=== PATIENT | female | born 1955 | race African-American/Black ===

== ENCOUNTER 2018-01-14 19:31 | Emergency (ER) | payer OTHER ==
[~2018-01-14] VITALS: Ht 167.6 cm; Wt 72.6 kg
[~2018-01-14 19:31] MED LIST: ALEVE220 M1 PO; APAP/CODEINE ELI5 M1 OR; APAP500; APAP500 PO; APHEN325 MG PO; ARICEPT 5 MG TAB5 MG PO; ASPIRIN EC81 M1 PO; BACTRIM DS TAB1 EACH PO; BAYER CHEWABLE81 MG PO; BENADRYL25 MG; BENADRYL25 MG PO; CARBAMAZEPINE200 M2 PO; CARBAMAZEPINE200 M6 PO; CEPACOL SORE T1 EAC7; CIPROFLOXACIN500 M1 PO; DOXYCYCLINE 10100 MG PO; FLONASE 0.05%50 MCG INH; FLONASE 0.05%50 MCG NASAL; GLUCOPHAGE1000 MG PO; HYDROCHLOROTHIA25 M1 PO; KEPPRA 500 MG500 MG PO; KEPPRA1000 MG PO; KEPPRA750 MG PO; LEVETIRACETAM750 M1 PO; LIPITOR10 MG PO; MEDROLDOSEPACK PO; METFORMIN HCL500 MG PO; MICROZIDE12.5 MG PO; MIRTAZAPINE45 MG PO; NAMENDA XR14 MG PO; NEOSPORIN OINTM15 GM TP; NICOTINE TRANSD21 M1 TD; NORVASC5 MG PO; ONDANSETRON HCL4 M2 PO; POTASSIUM20; PREDNISONE 20 M20 MG PO; PRINIVIL20 MG PO; PROCHLORPERAZIN10 MG PO; PROTONIX40 M2 PO; PROZAC20 MG PO; TRIAMCINOLONE A80 G2 TOP; TRIAMCINOLONE A80 GM TOP; ULTRAM 50MG TAB50 MG PO; VIMPAT1 EACH; ZOFRAN4 MG PO; ZPAK PO
[2018-01-14] MEDS ORDERED: ALEVE220 MG PO (19:42)
[2018-01-14] MEDS ORDERED: FLONASE 0.05%50 MCG NASAL (21:44)
== END 2018-01-14 21:48 | disposition home or self-care (01) ==
LOC: ER 19:31
DX: S00.83XA Contusion of other part of head, initial encounter (principal); S80.12XA Contusion of left lower leg, initial encounter; F17.210 Nicotine dependence, cigarettes, uncomplicated; I10 Essential (primary) hypertension; E11.9 Type 2 diabetes mellitus without complications; Z88.8 Allergy status to other drugs, medicaments and biological substances; Z88.5 Allergy status to narcotic agent; Z88.0 Allergy status to penicillin; Z88.2 Allergy status to sulfonamides; V89.2XXA Person injured in unspecified motor-vehicle accident, traffic, initial encounter; Y92.89 Other specified places as the place of occurrence of the external cause; Y93.89 Activity, other specified; Y99.8 Other external cause status

== ENCOUNTER 2019-01-20 16:45 | Emergency (ER) | payer OTHER ==
[~2019-01-20] VITALS: Ht 167.6 cm; Wt 79.4 kg
[~2019-01-20 16:45] MED LIST changes: +ALEVE220 MG PO
[2019-01-20 20:11] VITALS: BP 110/70
== END 2019-01-20 19:50 | disposition home or self-care (01) ==
LOC: ER 16:45
DX: M47.892 Other spondylosis, cervical region (principal); M12.88 Other specific arthropathies, not elsewhere classified, other specified site; I10 Essential (primary) hypertension; E11.9 Type 2 diabetes mellitus without complications; F17.210 Nicotine dependence, cigarettes, uncomplicated; Z88.0 Allergy status to penicillin; Z88.1 Allergy status to other antibiotic agents; Z88.2 Allergy status to sulfonamides; Z88.6 Allergy status to analgesic agent; V89.2XXA Person injured in unspecified motor-vehicle accident, traffic, initial encounter; Y93.89 Activity, other specified; Y92.415 Exit ramp or entrance ramp of street or highway as the place of occurrence of the external cause; Y99.8 Other external cause status

== ENCOUNTER 2019-08-12 11:55 | Inpatient (IN) | payer OTHER ==
[~2019-08-12] VITALS: Ht 167.6 cm; Wt 68.0 kg
[2019-08-12 11:57] VITALS: BP 130/52
[2019-08-12] MEDS ORDERED: PANTOPRAZOLE SO40 M1 PO (12:32)
[2019-08-12] MEDS ORDERED: LEVETIRACETAM750 MG PO (12:32)
[2019-08-12] MEDS ORDERED: ESCITALOPRAM OX10 MG PO (12:32)
[2019-08-12] MEDS ORDERED: LOSARTAN POTAS100 MG PO (12:32)
[2019-08-12] MEDS ORDERED: AMLODIPINE BESY10 MG PO (12:33)
[2019-08-12 13:37] LABS: ABSOLUTE NEUTROPHILS 13.7 thou/uL (1.4-8.2); BASOPHILS 0.6 % (0.0-2.0); EOSINOPHILS 0.4 % (0.0-3.0); HEMATOCRIT 31.3 % (37.0-47.0); HEMOGLOBIN 9.4 gm/dL (12.0-15.0); MCH 18.2 pg (26.0-34.0); MCHC 29.9 g/dL (28.0-37.0); MCV 60.8 fL (80.0-100.0); MONOCYTES 5.2 % (1.0-8.0); POLYS 83.8 % (36.0-66.0); RBC 5.15 mil/uL (4.20-5.00); RDW 22.5 % (10.5-14.5); WBC 16.4 thou/uL (4.0-11.0)
[2019-08-12 13:54] LABS: ALBUMIN 3.5 g/dL (3.4-5.0); ANION GAP 7 mmol/L (7-16); BUN 11 mg/dL (7-18); CALCIUM 9.4 mg/dL (8.5-10.1); CHLORIDE 101 mmol/L (98-107); CO2 28 mmol/L (21-32); CREATININE 0.9 mg/dL (0.6-1.0); GLUCOSE 104 mg/dL (74-106); MAGNESIUM 1.9 mg/dL (1.8-2.4); SGOT 58 U/L (15-37); SGPT 16 U/L (30-65); TOTAL BILIRUBIN 0.4 mg/dL (<0.1-1.0); TOTAL PROTEIN 7.5 g/dL (6.4-8.2); TROPONIN-I <0.06 ng/mL (<0.06)
[2019-08-12 13:57] LABS: SODIUM 136 mmol/L (136-145)
[2019-08-12 14:07] LABS: URINE BLOOD TRACE (Negative); URINE CLARITY CLEAR; URINE COLOR YELLOW; URINE GLUCOSE-RANDOM* TRACE (Negative); URINE KETONES TRACE (Negative); URINE PROTEIN (DIPSTICK) 2+ (Negative)
[2019-08-12 14:17] LABS: URINE LEUKOCYTES-REFLEX 2+ (Negative); URINE NITRITE-REFLEX POSITIVE (Negative)
[2019-08-12 14:21] LABS: URINE BILIRUBIN NEGATIVE (Negative)
[2019-08-12 14:22] LABS: ICTOTEST (BILI CONFIRMATORY) Negative (Negative)
[2019-08-12 14:31] LABS: PLATELET COUNT 285 thou/uL (150-400)
[2019-08-12 14:36] LABS: BACTERIA-REFLEX 1-9 Few /HPF (None Seen); CASTS None Seen /LPF (None Seen); CRYSTALS None Seen /LPF (None Seen); SQUAMOUS 4-10 Moderate /LPF (0-3); URINE RBC 0-2 Rare /HPF (0-2)
--- NOTE | 2019-08-12 17:23 | NUR ---
LAB CALLED TO OBTAIN SCHEDULED LACTIC ACID- LAB REPORTS THEY WILL BE DOWN SHORTLY
[2019-08-12 17:31] VITALS: BP 159/88
[2019-08-12 17:47] VITALS: BP 159/88
[2019-08-12 18:23] VITALS: BP 109/62
[2019-08-12 19:27] VITALS: BP 177/87
[2019-08-13] VITALS (7 sets, daily range): BP systolic 130–140; BP diastolic 66–73
--- NOTE | 2019-08-13 08:11 | NUR ---
A/O X 4.PATIENT COMPLAINING ALL NIGHT LONG ABOUT WHY THEY CANNOT FIND OUT WHATS GOING ON WITH HER.PATIENT HAS BEEN WANTING TO GO HOME.COMPLAIN OF ABDOMINAL DISCOMFORT AND NAUSEA.PEPTOBISMOL AND ZOFRAN WAS GIVEN.VERBALIZED RELIEF.STOOL SAMPLE SENT.PLACED ON SPECIAL ISOLATION WHILE WAITING FOR RESULT.LACTIC ACID HAS BEEN HIGH BUT REFUSES STICK LAST NIGHT AND AGREED TO BE STUCK THIS MORNING.MONITOR SHOWS TACHY.POC CONTINUED.
[2019-08-13] MEDS ORDERED: CIPRO500 M1 PO (10:00)
[2019-08-13] MEDS ORDERED: MIRALAX17 GM PO (10:00)
[2019-08-13] MEDS ORDERED: FLAGYL500 M1 PO (10:00)
--- NOTE | 2019-08-13 12:55 | NUR ---
THIS AM PT INSISTING ON GOING HOME SOON POSSIBLE. ENCOURAGING PT TO ALLOW IV FLUIDS/ANTIBIOTICS TO INFUSE AND TO REMAIN TO SEE MD WHEN HE ROUNDS. DR. KELLEY PRESENT, SPOKE WITH PT THEN SHE AGREED TO REMAIN ONLY TILL 1300. ALERT/ORIENTED X4, ST/SR, ROOM AIR, RESP EVEN AND UNLABORED, TOLERATING CLEAR LIQUID DIET WITHOUT NAUSEA OR VOMITING, STATES ABD "IS TENDER" SINCE SHE PASSED THE LARGE IMPACTION IN ER, VOIDING ADEQUATE AMOUNT URINE. PT CALLS FREQUENTLY INSISTING THAT SHE IS GOING HOME AND TO REMIND STAFF OF HER INTENTIONS. CONTINUED IV FLUIDS UP UNTIL DISCHARGE. DISCHARGE ORDERS GIVEN, REINFORCED DRINKING PLENTY OF WATER, VERBALIZED UNDERSTANDING. IV REMOVED BY TECH, THEN ESCORTED OUT PER WHEELCHAIR. THE TECH STATED, "HER RIDE WAS NOT THERE. THEN SHE CALLED FOR HER RIDE TO PICK HER UP, SO I WAITED WITH HER FOR TEN MINUTES".
--- NOTE | 2019-08-13 13:18 | EKG ---
[facility] [place] [address] [place] [address] ELECTROCARDIOGRAM REPORT Name: FRANK CUELLAR Room #: 208-P ADM IN M.R.#: [id number] Admission: 08/12/19 Attend Phys: Donnell Rubin MD Discharge: Date of : 51 Report #: [id number] THIS REPORT FOR: cc: Sotero Diaz MD, Steven A. MD Lundgren,Kirby Pinto MD [facility] ~ THIS REPORT FOR: //name// [facility] ED Test Date: 2019-08-12 Test Time: 12:04:19 Pat Name: FRANK CUELLAR Department: Room: 208 Gender: F Production Support Specialist: daija : [id number] Requested By: Parrish Gilbert Order Number: [id number] MD: Kirby Oconnell Measurements Intervals [place] Rate: 84 P: 53 [place]: 132 QRS: -49 QRSD: 105 T: 21 QT: 432 QTc: 511 Interpretive Statements Sinus rhythm Left anterior fascicular block Abnormal R-wave progression, early transition Prolonged QT interval Compared to ECG 01/13/2014 16:28:24 Prolonged QT interval now present Sinus tachycardia no longer present Electronically Signed On 08-13-2019 13:17:13 CDT by Kirby Oconnell [email or web address] <ELECTRONICALLY SIGNED> By: Kirby Oconnell MD, [facility] 08/13/19 1317 1204 [id number] Kirby Oconnell MD, [facility] /EPI
== END 2019-08-13 15:23 | disposition home or self-care (01) | DRG 392 ==
LOC: ER 11:55 → 2N 17:06 → EROBS 17:06 → 2N 17:57
PROVIDERS: Emergency Medicine; Physician Assistant; ADMIT Hospitalist
DX: K52.9 Noninfective gastroenteritis and colitis, unspecified (principal); N39.0 Urinary tract infection, site not specified; I10 Essential (primary) hypertension; E11.9 Type 2 diabetes mellitus without complications; F17.210 Nicotine dependence, cigarettes, uncomplicated; G40.909 Epilepsy, unspecified, not intractable, without status epilepticus; R55 Syncope and collapse; R74.0 Nonspecific elevation of levels of transaminase and lactic acid dehydrogenase [LDH]; A59.9 Trichomoniasis, unspecified; Z79.899 Other long term (current) drug therapy; Z88.5 Allergy status to narcotic agent; Z88.0 Allergy status to penicillin; Z88.2 Allergy status to sulfonamides; Z88.8 Allergy status to other drugs, medicaments and biological substances; Z79.2 Long term (current) use of antibiotics
CPT/HCPCS: 10081